=== PATIENT | female | born 1940 | race Caucasian/White ===

== ENCOUNTER 2025-03-12 10:30 | Emergency (ER) | payer MEDICARE, OTHER, SELFPAY ==
[2025-03-12 10:52] VITALS: BP 112/65; PULSE 64; RESP 16; TEMP 36.4; O2SAT 91; BMI 16.7
--- NOTE | 2025-03-12 11:39 | CT_ITS ---
WS: [id number] CT head wo con* [id number] REASON FOR EXAM: fall, head injury IV CONTRAST ADMINISTERED: None. TOTAL EXAM DLP: 1016.[address] scans at [facility] use at least one of these dose optimization techniques: automated exposure control; mA and/or kV adjustment per patient size (includes targeted exams where dose is matched to clinical indication); or iterative reconstruction. FINDINGS: Bony calvarium, facial bones, and base of skull are intact without fracture. Intracranially there is no midline shift or other significant mass effect. There are no findings of subdural, subarachnoid, or intraparenchymal hemorrhage. No other focal brain parenchymal abnormality. Mild diffuse symmetric periventricular low-attenuation compatible with chronic ischemic demyelination. Mild frontal lobe and cerebellar hemisphere atrophy. Ventricles mildly prominent. CT/CT head wo con* [id number] IMPRESSION: No acute abnormality.
--- NOTE | 2025-03-12 12:36 | ED_ITS ---
HPI - Fall General: Chief Complaint: Fall Stated Complaint: Fell hit L side of head Time Seen by Provider: 03/12/25 12:15 History of Present Illness: 84-year-old female presents emergency ro om with complaints of a fall. She fell at home she has laceration on her left forearm with laceration on her scalp. Denies loss of consciousness. She fell while in the shower this morning. Denies chest pain or shortness of breath Associated symptoms-after fall: Denies abdominal pain, chest pain or neck pain Related Data Allergies Allergy/AdvReac Type Severity Reaction Status Date / Time No Known Allergies Allergy Verified 03/12/25 10:56 Review of Systems Const: Denies: fever(s) or chills Card: Denies: chest pain Resp: Denies: dyspnea GI: Denies: abdominal pain : Denies: dysuria, urinary frequency or urinary urgency Musc: Denies: neck pain or back pain Skin/Breast: Denies: rash Physical Exam Const: GENERAL APPEARANCE: cooperative ORIENTATION/CONSCIOUSNESS: Yes awake, Yes oriented to person, Yes oriented to place and Yes oriented to time HENMT: COMMON NORMALS: normocephalic, atraumatic and hearing grossly normal bilaterally HEAD & SCALP: normocephalic and atraumatic Resp: COMMON NORMALS: normal respiratory effort, No retractions, No use of accessory muscles and clear to auscultation bilaterally AUSCULTATION: clear to auscultation bilaterally Cardio: COMMON NORMALS: regular rate, regular rhythm and No murmurs present (Cardio) RATE: regular rate RHYTHM: regular rhythm GI: COMMON NORMALS: Soft to palpation and No hepatosplenomegaly present AUSCULTATION: Yes normoactive bowel sounds PALPATION: Yes Soft to palpation, No Tenderness to palpation present (GI), No Guarding due to palpation present (GI) and Yes No hepatosplenomegaly present Extremity: COMMON NORMALS: normal to inspection, capillary refill normal, no clubbing, cyanosis or edema, no calf tenderness and no pedal edema Neuro: SENSORIUM/ORIENTATION: Yes oriented to person, Yes oriented to place and Yes oriented to time Skin: COMMON NORMALS: no rashes or lesions noted GENERAL SKIN EXAM: no rashes or lesions noted Procedures Laceration Laceration 1: Site: scalp Side (If applicable): left (Upper occipital) Size (cm): 1 Description: linear Pre-repair: irrigated extensively Skin layer closed with: other (Single staple) Laceration 2: Site: upper extremity Side (If applicable): left Size (cm): 5 Description: linear Depth: simple, single layer Local Anesthetic: lidocaine 1% Amount of anesthesia used (mL): 4 Pre-repair: wound explored and irrigated extensively Skin layer closed with: nylon Size (cm): 5-0 Number of sutures: 1 Technique: running Course Vital Signs: Vital signs: Vital Signs Temperature 97.5 F L 03/12/25 10:52 Pulse Rate 63 03/12/25 13:32 Respiratory Rate 16 03/12/25 10:52 Blood Pressure 159/88 03/12/25 13:32 Pulse Oximetry 99 03/12/25 13:32 Oxygen Delivery Me thod Room Air 03/12/25 10:52 MDM - Fall Medical Decision Making CT head negative for intracranial pathology. Patient has no neck pain. Moves all extremities without difficulty no other signs of injury beyond the lacerations noted. 5 cm laceration left forearm closed with running suture. Single staple to laceration on the left upper occiput. Wound care instructions given and follow-up with primary care to remove. Medical Records I reviewed the patient's medical records. Lab Data Radiology Impressions Head CT 03/12/25 11:39 IMPRESSION: No acute abnormality. All radiology interpretation(s) finalized by discharge Discharge Plan Discharge Patient Disposition: Home Clinical Impression: Laceration of forearm, left, Fall, Laceration of scalp Condition: Stable Discharge Orders: Discharge ED (Routine); Ordered 03/12/25 Ordered By: Aneesh Ospina Discharge Diet: Usual diet Discharge Activity: Increase activity as tolerated Patient Instructions: Opioid Safety, Pain Management, Patient Portal & Kevin Instructions Activity Restrictions/Additional Instructions: Thank you for choosing [facility] for your healthcare needs today. It is very important that you follow up as instructed or that you return to the Emergency Department should you have concerns or if your condition changes or worsens in any way. Emergency department visits are focused on emergent conditions, in some cases you may require further evaluation on an outpatient basis. You were seen in the emergency room after a fall. He stained a laceration of the left forearm which is closed with stitches there is also a small laceration on the left side of the occiput. This was closed with florentino. The florentino and the stitches should be removed in approximately [address] of your head was negative the remainder of your exam was unremarkable will discharge you home follow-up with your primary care doctor in 1 week. Apply topical antibiotic ointment to the wounds until healed. (Please note that included in your discharge packet is information concerning opioid safety and pain management. This information is given to all patients were discharged from the ER regardless of their discharge diagnosis or the medicines they usually take or are prescribed.) Print Language: Thai Coding Level of Care Code ED Rigger Third for Shirley Coreas
[2025-03-12 13:32] VITALS: BP 159/88; PULSE 63; O2SAT 99
--- NOTE | 2025-03-12 13:52 | PC.NURSE ---
applied dry dressing to L forearm
== END 2025-03-12 13:52 | disposition home or self-care (01) ==
PROVIDERS: Emergency Provider Family Medicine
DX: S51.812A Laceration without foreign body of left forearm, initial encounter (principal); S01.01XA Laceration without foreign body of scalp, initial encounter; W18.2XXA Fall in (into) shower or empty bathtub, initial encounter
CPT/HCPCS: 12002; 70450; 99284; J9999

== ENCOUNTER → 2025-04-09 09:21 | Outpatient (BNVA) | payer MEDICARE, OTHER, SELFPAY | PROVIDERS: Visit Provider Dermatology | DX: L82.1 Other seborrheic keratosis (principal); D18.01 Hemangioma of skin and subcutaneous tissue; L85.3 Xerosis cutis; Z08 Encounter for follow-up examination after completed treatment for malignant neoplasm; Z85.828 Personal history of other malignant neoplasm of skin; L57.0 Actinic keratosis | CPT/HCPCS: 17000; 99203 ==

== ENCOUNTER → 2025-05-12 10:32 | Outpatient (BNVA) | payer MEDICARE, OTHER, SELFPAY | PROVIDERS: Visit Provider Dermatology | DX: L57.0 Actinic keratosis (principal); L24.9 Irritant contact dermatitis, unspecified cause; L57.8 Other skin changes due to chronic exposure to nonionizing radiation; L82.1 Other seborrheic keratosis; Z08 Encounter for follow-up examination after completed treatment for malignant neoplasm; Z85.828 Personal history of other malignant neoplasm of skin | CPT/HCPCS: 99213 ==